=== PATIENT | female | born 1955 | race Caucasian/White ===

== ENCOUNTER 2024-03-21 08:26 | Emergency (ER) | payer MEDICARE ==
[~2024-03-21] VITALS: Ht 167.6 cm; Wt 77.0 kg
[~2024-03-21 08:26] MED LIST: ANASTROZOLE1 MG PO; BENAZEPRIL10 M1 PO; LEVEMIR FL100 UNIT/M SC; LIPITOR80 M1 PO; LOTENSIN HCT1 TA2 PO; METFORMIN HCL1000 M1 PO; TH ASPIRIN LOW81 MG PO; [UNRECOGNIZED DRUG - REMARK] SC; [UNRECOGNIZED DRUG - SUPPLY]
[2024-03-21 09:41] VITALS: BP 167/78
[2024-03-21] MEDS ORDERED: CLINDAMYCIN HCL 150 MG CAP PO ONE (09:55)
[2024-03-21] MEDS ORDERED: MUPIROCIN (PSEUDOMONAS FLUORES 22 GM/TUBE TUBE TOP ONE ×2 (09:55→10:15)
[2024-03-21 10:00] VITALS: BP 166/78
[2024-03-21 10:30] VITALS: BP 159/78
[2024-03-21] MEDS ORDERED: PROBIOTI2 PO (11:04)
[2024-03-21] MEDS ORDERED: CLINDAMYCIN300 M1 PO (11:04)
[2024-03-21] MEDS ORDERED: MUPIROCIN2 % EX (11:04)
[2024-03-21 11:45] VITALS: BP 159/78
[2024-03-23] MEDS ORDERED: LEVOFLOXACIN500MG PO (11:18)
== END 2024-03-21 11:45 | disposition home or self-care (01) ==
LOC: ED 08:26
DX: T81.41XA Infection following a procedure, superficial incisional surgical site, initial encounter (principal); B96.89 Other specified bacterial agents as the cause of diseases classified elsewhere; B95.61 Methicillin susceptible Staphylococcus aureus infection as the cause of diseases classified elsewhere; I12.9 Hypertensive chronic kidney disease with stage 1 through stage 4 chronic kidney disease, or unspecified chronic kidney disease; E11.22 Type 2 diabetes mellitus with diabetic chronic kidney disease; N18.2 Chronic kidney disease, stage 2 (mild); E78.00 Pure hypercholesterolemia, unspecified; Y83.8 Other surgical procedures as the cause of abnormal reaction of the patient, or of later complication, without mention of misadventure at the time of the procedure; Z79.4 Long term (current) use of insulin; Z79.84 Long term (current) use of oral hypoglycemic drugs

== ENCOUNTER 2024-03-29 06:47 | Emergency (ER) | payer MEDICARE ==
[~2024-03-29] VITALS: Ht 167.6 cm; Wt 78.0 kg
[~2024-03-29 06:47] MED LIST changes: +CLINDAMYCIN300 M1 PO; +LEVOFLOXACIN500MG PO; +MUPIROCIN2 % EX; +PROBIOTI2 PO
[2024-03-29] MEDS ORDERED: BACTRIM DS1 TAB PO (08:37)
[2024-03-29 08:40] VITALS: BP 184/81
== END 2024-03-29 08:48 | disposition home or self-care (01) ==
LOC: ED 06:47
DX: L03.114 Cellulitis of left upper limb (principal); I10 Essential (primary) hypertension; E11.9 Type 2 diabetes mellitus without complications; E78.00 Pure hypercholesterolemia, unspecified; Z79.4 Long term (current) use of insulin; Z79.84 Long term (current) use of oral hypoglycemic drugs